=== PATIENT | female | born 1930 | race African-American/Black ===

== ENCOUNTER → 2019-10-13 | Day surgery (SDC) | payer MEDICARE, OTHER ==
--- NOTE | 2019-10-10 15:21 | Diagnostic Imaging Report ---
X-ray chest PA and lateral Comparison: None History: Preop Findings: Central airways unremarkable. Heart size normal. Atherosclerotic aorta. No pleural effusion. No pneumothorax. No focal lung disease. Low flat diaphragms. Kyphotic thoracic spine. Osteopenic bones. Multiple malik in the upper abdomen. Impression: Possible COPD. No acute cardiopulmonary disease. Signed by: Jesus Manuel Cho MD on 10/10/2019 3:18 PM
[2019-10-10 15:25] LABS: BASOPHILS % 0.7 % (0.0-1.0); EOSINOPHILS # (AUTO) 0.4 (0.0-0.4); EOSINOPHILS % 7.2 % (0.0-6.0); HEMATOCRIT 33.2 % (34.2-44.1); HEMOGLOBIN 11.3 g/dL (12.0-16.0); LYMPHOCYTES # (AUTO) 1.5 (1.0-3.2); LYMPHOCYTES % 27.2 % (18.0-39.1); MEAN CORPUSCULAR HEMOGLOBIN 27.2 pg (28-32); MONOCYTES # (AUTO) 0.5 (0.2-0.8); MONOCYTES % 8.9 % (4.4-11.3); NEUTROPHILS % 55.8 % (38.7-80.0); PLATELET COUNT 202 x10e3/uL (140-360); RED BLOOD COUNT 4.15 x10e6/uL (3.6-5.1); RED CELL DISTRIBUTION WIDTH 15.2 % (11.7-14.4)
[2019-10-10 15:40] LABS: ANION GAP 9.5 mmol/L (8-16); CALCIUM 10.5 mg/dL (8.4-10.2); CREATININE, SERUM 1.37 mg/dL (0.57-1.11); POTASSIUM 4.5 mmol/L (3.5-5.1)
[~2019-10-13] MED LIST: ALBUTEROL0.63 MG/3 NEB; AMLODIPINE BESYL5 MG PO; ASPIR 8181 MG PO; CEFTRIAXONE SOD 1 GM/NS 50 ML 50 ML IV ONE; CEFUROXIME500 MG PO; CIPRO500 MG PO; DEXAMETHASONE SOD PHOS INJ 4 MG/ML VIAL ONE; EPHEDRINE SULFATE INJ 50 MG/ML VIAL ONE; ETOMIDATE 2 MG/ML 10 ML INJ IV ONE; FENTANYL CITRATE/PF 100MCG/2 ML INJ ONE; LEVOTHYROXINE88 MCG PO; LIDOCAINE HCL 2% LOCAL INJ 5 ML SDV VIAL INJ ONE; NALOXONE HCL INJ 0.4 MG/ML AMP ONE; NORCO 5-325 TA1 EACH PO; ONDANSETRON HCL INJ 2MG/ML 2ML 2 MG/ML VIAL ONE; PROPOFOL IV EMULSION 10 MG/ML 20 ML VIAL ONE; SERTRALINE HCL50 MG PO; SEVOFLURANE INHAL SOLN 250 ML PEN BTL ONE; SIMVASTATIN20 MG PO
--- NOTE | 2019-10-13 07:20 | NUR ---
SPIRITUAL CARE - Pre-Surgery Assessment: Pt in bed. Pt's daughter at bedside. Pt reported supportive attention from family and friends. Intervention: Engineer Chief provided pastoral presence, hospitality, prayer, and sympathetic listening. Acquainted pt with availability of width stripper while hospitalized. Outcome: Pt expressed appreciation for visit. No need for follow up indicated at this time. CHUCK Julio Spiritual Care Department O: [phone]
[2019-10-13 09:35] VITALS: BP 175/86
--- NOTE | 2019-10-13 09:45 | Operative Report ---
DATE OF PROCEDURE: 10/13/2019 SURGEON: Kranthi Rangel MD PREOPERATIVE DIAGNOSIS: Bladder mass. POSTOPERATIVE DIAGNOSIS: No mass seen. OPERATIVE PROCEDURE: 1. Cystoscopy. 2. Bladder biopsy. ANESTHESIA: General anesthesia. ESTIMATED BLOOD LOSS: Minimal. INDICATIONS: Ms. Tejinder Gan is an 89-year-old woman who was having abdominal pain and had an ultrasound which was done and showed a mass in the bladder. She now presents for potential diagnosis and management of this problem. PROCEDURE IN DETAIL: The patient was brought into the operating room, placed in supine position and after the administration of general anesthesia, she was placed in dorsal lithotomy position and prepped and draped in the usual sterile fashion. Cystourethroscopy was performed using 21-Ethiopian cystoscope. The anterior and posterior urethra were noted to be normal. There was some small hyperplastic polyp seen at the bladder neck. The bladder was entered without difficulty. Upon entrance into the bladder, the ureteral orifices were in a normal anatomical position. There were no mucosal lesions were identified with filling or emptying of the bladder. Her bladder capacity appeared normal. Using the cold cup bladder biopsy forceps, a single biopsy was taken from the right lateral wall in an area that revealed slight mucosal hypervascularity. This site was coagulated using the Bugbee electrode. Once adequate hemostasis was secured, the bladder was drained in its entirety and the cystoscope and sheath were removed. She was returned to supine position and anesthesia was reversed. She was transferred to a bed and taken to the postanesthesia care unit in good condition. Of note, the needle and instrument count were correct at the conclusion of the case. Kranthi Rangel MD HLW/MODL /[id number]
== END | disposition home or self-care (01) ==
LOC: OR 06:20
PROVIDERS: ATTEND Urology
DX: D41.4 Neoplasm of uncertain behavior of bladder (principal); N30.20 Other chronic cystitis without hematuria; N18.9 Chronic kidney disease, unspecified; J44.9 Chronic obstructive pulmonary disease, unspecified; E78.5 Hyperlipidemia, unspecified; E03.9 Hypothyroidism, unspecified; R03.0 Elevated blood-pressure reading, without diagnosis of hypertension; Z01.810 Encounter for preprocedural cardiovascular examination; Z01.812 Encounter for preprocedural laboratory examination; Z01.818 Encounter for other preprocedural examination; Z11.59 Encounter for screening for other viral diseases; Z79.82 Long term (current) use of aspirin; Z87.891 Personal history of nicotine dependence
CPT/HCPCS: 36415; 52214; 71046; 80048; 85025; 87635; 88305; 88313; 93005; J0696; J1100; J2001; J2310; J2405; J2704; J3010; 88312